=== PATIENT | female | born 1970 | race Two or more races ===

== ENCOUNTER 2023-07-18 05:34 | Day surgery (SDC) | payer OTHER ==
[~2023-07-18] VITALS: Ht 175.3 cm; Wt 77.1 kg
[~2023-07-18 05:34] MED LIST: CELEBREX50 MG; ELAVIR; FLEXERIL; LIPITOR40 M1; PLAVIX75 MG; RESTORIL15 M1; WELLBUTRIN SR100 MG
[2023-07-18] MEDS ORDERED: POVIDONE-IODINE 118 ML BOTT TOP ONE ×2 (08:29→09:15)
[2023-07-18] MEDS ORDERED: ONDANSETRON HCL 2 MG/ML VIAL IV ONE (10:45)
== END 2023-07-18 12:30 | disposition home or self-care (01) ==
LOC: CIR.AMB 05:34
PROVIDERS: ATTEND Obstetrics & Gynecology
DX: N85.8 Other specified noninflammatory disorders of uterus (principal); D25.0 Submucous leiomyoma of uterus; Z88.6 Allergy status to analgesic agent

== ENCOUNTER → 2024-07-09 | Day surgery (SDC) | payer OTHER ==
[2024-07-06 10:20] VITALS: BP 107/73
[~2024-07-09] VITALS: Ht 175.3 cm; Wt 77.1 kg
[~2024-07-09] MED LIST changes: +MORPHINE SULFATE 4 MG/ML VIAL IV ONE; +ONDANSETRON HCL 2 MG/ML VIAL IV ONE
== END | disposition home or self-care (01) ==
LOC: ADM 07-06 08:30 → CIR.AMB 06:39
PROVIDERS: ATTEND Obstetrics & Gynecology
DX: N95.0 Postmenopausal bleeding (principal); D25.0 Submucous leiomyoma of uterus; Z88.6 Allergy status to analgesic agent; M19.90 Unspecified osteoarthritis, unspecified site; F41.9 Anxiety disorder, unspecified

== ENCOUNTER 2024-12-19 09:45 | Inpatient (IN) | payer OTHER ==
[~2024-12-19] VITALS: Ht 175.3 cm; Wt 77.1 kg
[~2024-12-19 09:45] MED LIST changes: -MORPHINE SULFATE 4 MG/ML VIAL IV ONE; -ONDANSETRON HCL 2 MG/ML VIAL IV ONE
[2024-12-19 11:33] VITALS: BP 108/73
[2024-12-24] MEDS ORDERED: POVIDONE-IODINE 118 ML BOTT TOP ONE (12:15)
[2024-12-24] MEDS ORDERED: CEFAZOLIN SODIUM 1,000 MG VIAL IV ONE (12:15)
[2024-12-24] MEDS ORDERED: MORPHINE SULFATE 4 MG/ML VIAL IV ONE ×2 (13:30→14:45)
[2024-12-24] MEDS ORDERED: SIMETHICONE 125 MG CAPSULE PO SCH (14:35)
[2024-12-24] MEDS ORDERED: MORPHINE SULFATE 4 MG/ML CARTRIDGE IV SCH (16:00)
[2024-12-24] MEDS ORDERED: PROMETHAZINE HCL 50 MG/ML AMPUL IV SCH (16:00)
[2024-12-24 16:32] VITALS: BP 134/71
[2024-12-24] MEDS ORDERED: ACETAMINOPHEN 500 MG GEL..CAP PO SCH (18:00)
[2024-12-24 18:50] LABS: BASO % 0.2 % (0.1-1.2); EOS # 0.01 (0.04-0.54); EOS % 0.1 % (0.7-7.0); LYMPH # 1.32 (1.18-3.74); LYMPH % 15.5 % (19.3-53.1); MEAN PLATELET VOLUME 10.00 fl (9.4-12.4); MONO # 0.46 (0.24-0.82); MONO % 5.4 % (4.7-12.5); NEUT # 6.65 (1.56-6.13); NEUT % 78.4 % (34.0-71.1); RED CELL DISTRIBUTION WIDTH 13.0 % (11.6-14.4)
[2024-12-24] MEDS ORDERED: GABAPENTIN 600 MG TABLET PO SCH (21:00)
[2024-12-25] VITALS: BP 94/58
[2024-12-25] MEDS ORDERED: SIMETHICONE125 M1 PO (06:38)
[2024-12-25] MEDS ORDERED: MIRALAX17 GM PO (06:38)
[2024-12-25] MEDS ORDERED: NEURONTIN600 MG PO (06:38)
[2024-12-25] MEDS ORDERED: PAIN RELIEVER500 M2 PO (06:38)
[2024-12-25 08:36] VITALS: BP 99/63; O2SAT 97
== END 2024-12-25 09:14 | disposition home or self-care (01) | DRG 743 ==
LOC: O/R 12-24 07:00 → SURH 12-24 09:45 → OB/GYN 12-24 15:40 → SURH 12-24 16:15 → OB/GYN 12-25 09:14
PROVIDERS: ADMIT Obstetrics & Gynecology; ATTEND Obstetrics & Gynecology
PROC: 0UT9FZZ Resection of Uterus, Via Natural or Artificial Opening With Percutaneous Endoscopic Assistance (ICD-10-PCS; principal; 2024-12-24 16:15)
DX: D25.0 Submucous leiomyoma of uterus (principal); R10.2 Pelvic and perineal pain; N95.0 Postmenopausal bleeding